=== PATIENT | male | born 1990 | race Caucasian/White ===

== ENCOUNTER 2020-03-09 19:45 | Emergency (ER) | payer MEDICAID, SELFPAY ==
[2020-03-09 19:46] VITALS: BP 143/100; PULSE 83; RESP 18; TEMP 36.5; O2SAT 100; BMI 21.4
--- NOTE | 2020-03-09 20:02 | ED.RN ---
RN CALLED FOR EKG, NO OLD EKGS IN MUSE
--- NOTE | 2020-03-09 20:19 | EKG12_ITS ---
Test Reason : CP Blood Pressure : / mmHG Vent. Rate : 068 BPM Atrial Rate : 068 BPM P-R Int : 136 ms QRS Dur : 088 ms QT Int : 356 ms P-R-T Axes : 065 052 057 degrees QTc Int : 378 ms Normal sinus rhythm Normal ECG Confirmed by ARON CORNEJO, MARCELA ([id number]), online editor INGRID DEL TORO ([id number]) on 03/14/2020 6:41:13 AM Referred By: GHISLAINE Confirmed By:MARCELA SHARP MD
--- NOTE | 2020-03-09 20:19 | RAD_ITS ---
STUDY: X-RAY - LEFT KNEE REASON FOR EXAM: Male, 29 years old. Patient is having left knee pain and swelling. Unknown injury. TECHNIQUE: 4 view(s) of the knee. COMPARISON: None. FINDINGS: Normal visualized distal femur. Normal visualized proximal tibia and fibula. Normal proximal tibiofibular articulation. There is a bipartite patella versus fracture of the superolateral aspect of the patella. Normal medial femorotibial compartment. Normal lateral femorotibial compartment. Normal patellofemoral articulation. There is no demonstrated joint effusion. There is marked soft tissue swelling over the anterior knee. RAD/Knee 4 or More Views IMPRESSION: 1. Marked anterior soft tissue swelling. 2. Bipartite patella versus patellar fracture. Electronically Signed: Spencer Mccall DO at 21:00 EST Tel [phone], Service support ,
[2020-03-09 20:31] LABS: Absolute Lymphocyte Count 2.44 X10^3/uL (0.83-4.51); Absolute Neutrophil Count 6.4 X10^3/uL (2.0-7.7); Basophil# 0.05 X10^3/uL; Basophil% 0.5 % (0-1); Eosinophil# 0.26 X10^3/uL; Eosinophils% 2.5 % (0-5); Hematocrit 42.5 % (40-54); Hemoglobin 14.2 g/dL (13.0-16.5); Lymphocyte # 2.44 X10^3/ul (4.0); Lymphocyte % 23.9 % (19-41); Mean Corp Hgb Conc 33.4 g/dL (32-36); Mean Corpuscular Hgb 32.3 pg (27.0-32.0); Mean Corpuscular Volume 96.6 fL (80-94); Mean Platelet Vol. 10.2 fl (6.2-12.0); Monocyte% 9.8 % (0-10); NRBC Flagged by Analyzer 0 % (0-5); Neutrophil # 6.43 X10^3/uL (2.7-7.7); Platelet Count 250 K/mm3 (150-450); RBC Distribution Width CV 12.3 % (11.6-14.6); RBC Distribution Width SD 43.6 fl (35.1-43.9); White Blood Count 10.2 K/mm3 (4.4-11.0)
--- NOTE | 2020-03-09 20:35 | RAD_ITS ---
STUDY: X-RAY CHEST REASON FOR EXAM: Male, 29 years old. Intermittent chest pain and syncope that began 4 days ago. TECHNIQUE: Single AP portable view of the chest. COMPARISON: None. FINDINGS: The lungs are clear and expanded. There is no demonstrated pleural abnormality. Normal size heart. Normal mediastinum and gonzalo. Normal visualized pulmonary arteries. Normal visualized aortic arch and descending thoracic aorta. Normal visualized thoracic spine. Normal visualized ribs, clavicles, and shoulders. There is no demonstrated abnormality of the visualized soft tissue structures of the upper abdomen. RAD/Chest 1 View (Portable) IMPRESSION: Normal x-ray examination of the chest. Electronically Signed: Spencer Mccall DO at 20:54 EST Tel [phone], Service support ,
[2020-03-09 20:41] LABS: D-Dimer Quantitative (DVT/PE) <= 0.27 FEU/ug/m (0.27-0.49)
[2020-03-09 20:47] LABS: Anion Gap 3 (5-15); BUN 13 mg/dL (7-18); BUN/Creat Ratio 15.6 RATIO (10-20); Calcium,Total 8.7 mg/dL (8.5-10.1); Chloride 108 mmol/L (98-107); Creatinine, Serum 0.83 mg/dL (0.70-1.30); EST Glomerular Filtration Rate 116 mL/min (>60); Est Glom Filt Rate - Afr Amer 141 mL/min (>60); Estimated Creatinine Clearance 125.93 ml/min; Glucose 105 mg/dL (74-106); Sodium Level 138 mmol/L (136-145)
[2020-03-09] MEDS: 0.9% Normal Saline 1,000 ML 1000 ML IV (20:48)
[2020-03-09] MEDS: Ketorolac 15 MG/ML Vial IV (20:48)
[2020-03-09 21:25] VITALS: BP 108/97; BP 118/73; BP 121/88; PULSE 62; PULSE 66; PULSE 76
--- NOTE | 2020-03-09 21:43 | ED.DCSUM_ITS ---
- ER Visit Summary Date of Service: 03/09/20 Chief Complaint: Syncope and left knee pain History of Present Illness: The patient is a 29 M with no primary care physician. Reports that 2 days ago he was moving furniture on a leti and began feeling lightheaded and diaphoretic. Next thing he knew he woke up on the floor. Reports that a sharp pain in his chest just prior to this. He reports that he continues to have chest pain since that time. It is a sharp pain Zeta 10 at worst and 3-10 currently. Is worsened by exertion. Is unchanged with movement. Is also relieved by nothing. He has had nausea, but no vomiting. He does report that he is mildly short of breath. Patient reports that he has left knee pain again 2 days ago as well. He denies that this is from the fall. He ports he had another episode of this approximately 3 weeks ago. Reports that the sharp pain when he touches is a 6 out of 10 in severity. It is 2 out of 10 at rest. He denies pain with flexion of his knee. Physical Examination: Vitals: Stable. Afebrile. General: Well-nourished and well-developed. Head: Normocephalic atraumatic. Neck: Supple, no lymphadenopathy. No JVD. Nontender. Cardiovascular: Regular rate and rhythm. No murmurs. Respiratory: No respiratory distress. Clear to auscultation bilaterally. Abdominal: Soft, nontender, nondistended, normal bowel sounds. No guarding, rebound, or peritoneal signs. Back: Nontender. Extremities: Obvious prepatellar bursitis on the left with soft tissue swelling and mild erythema. He has no pain with short arc movements to suggest a septic joint. He is a 2+ dorsalis pedis pulse distally. Skin: Normal color, no rash. Neurologic: Alert and oriented ?3. Cranial nerves II through XII are intact. Normal strength and sensation. Psych: Normal affect. Test Results: EKG is sinus at 68 with a benign early repole pattern. There is no evidence of Brugada syndrome or HOCM. CBC is normal. Chem-7 shows a chloride of 108. D-dimer is negative. Troponin is negative. Clinical Impression(s) from Imaging Studies Knee X-Ray 03/09/20 20:19 IMPRESSION: 1. Marked anterior soft tissue swelling. 2. Bipartite patella versus patellar fracture. Electronically Signed: Spencer Mccall DO at 21:00 EST Tel [phone], Service support , Chest X-Ray 03/09/20 20:35 IMPRESSION: Normal x-ray examination of the chest. Electronically Signed: Spencer Mccall DO at 20:54 EST Tel [phone], Service support , Emergency Department Course and Treatment: Patient had an IV placed. He was given Toradol IV. He is resting comfortably. In my opinion the questionable patellar fraction is a bipartite patella. It is quite well-rounded. Treatment Plan: Patient will be discharged with a knee immobilizer and naproxen. Instructed to follow-up with Dr. Harsha Edwards in 3 to 5 days for his knee p ain. He is instructed to follow-up with the [facility] regarding his syncope. Return to the emergency department for any worsening symptoms. Disposition: To home in improved and stable condition. Impression: 1. Syncope. 2. Prepatellar bursitis on left. 3. Left bi-partite patella. This note was generated with [employer]. dictation software. It may contain incorrect words, spelling, and punctuation that were not noted in review of the chart prior to signing ED Disposition - Plan for ED Patient: Instructions: ED Bursitis, ED Fainting, Uncertain Cause Prescriptions: Naproxen [Naprosyn] 500 mg PO BID #14 tablet Referrals: Marita Kaufman [NON-STAFF] - As soon as possible Harsha Edwards MD [STAFF PHYSICIAN] - 3-5 Days
[2020-03-09 22:07] VITALS: BP 122/87; PULSE 68; RESP 13; O2SAT 99
== END 2020-03-09 22:20 | disposition home or self-care (01) ==
LOC: ED 21:03
PROVIDERS: Emergency Provider Emergency Medicine
DX: R55 Syncope and collapse (principal); M70.42 Prepatellar bursitis, left knee; Y93.9 Activity, unspecified; Q74.1 Congenital malformation of knee; F17.200 Nicotine dependence, unspecified, uncomplicated
CPT/HCPCS: 71045; 73564; 80048; 84484; 85025; 85379; 93005; 96361; 96374; 99285; J7030; A4216